=== PATIENT | male | born 1980 | race Caucasian/White ===

== ENCOUNTER 2020-10-14 17:08 | Emergency (ER) | payer OTHER, SELFPAY ==
[2020-10-14 17:27] VITALS: BP 145/91; PULSE 94; RESP 20; TEMP 36.6; O2SAT 98
--- NOTE | 2020-10-14 18:32 | PC.NURSE ---
Came to nurses desk and states he got the food down. Is able to drink and swallow not. Left without being seen.
== END 2020-10-14 18:47 | disposition left against medical advice (07) ==
LOC: ANHED 18:43
DX: T17.228A Food in pharynx causing other injury, initial encounter (principal)
CPT/HCPCS: 99199

== ENCOUNTER 2022-04-30 13:26 | Day surgery (SDC) | payer OTHER, SELFPAY ==
[2022-04-30 14:21] VITALS: BP 139/95; PULSE 87; RESP 16; TEMP 36.9; O2SAT 99
--- NOTE | 2022-04-30 14:55 | ED.GENADULT ---
HPI - General Adult General Chief complaint: Skin/Abscess/Foreign Body Stated complaint: foreign body GI Time Seen by Provider: 04/30/22 14:36 Source: patient Mode of arrival: ambulatory Limitations: no limitations History of Present Illness HPI narrative: 42-year-old with a history of hypertension here with complaints of vomiting and food stuck in the esophagus for last couple hours. Patient states that he was eating chicken and rice and he thinks it is stuck in the mid chest area he is unable to swallow or keep anything down. He states that he had similar problem several years ago. Onset (ago): hour(s) (2) Quality: aching Pain Consistency: constant Associated symptoms: denies other symptoms Related Data Home Medications Medication Instructions Recorded Confirmed lisinopril 10 mg tablet mg 04/30/22 Allergies Allergy/AdvReac Type Severity Reaction Status Date / Time No Known Allergies Allergy Verified 04/30/22 14:24 Review of Systems Review of Systems: All systems reviewed & are unremarkable except as noted in HPI and below Constitutional: Constitutional: Reports no additional constitutional complaints Eyes: Eyes: Reports no additional eye complaints ENT: Reports system reviewed and no additional complaints, except as documented Cardiovascular: Cardiovascular: Reports no additional cardiovascular complaints Respiratory: Respiratory: Reports no additional respiratory complaints Gastrointestinal: Gastrointestinal: Reports as per HPI Musculoskeletal: Musculoskeletal: Reports no additional musculoskeletal complaints Neurologic: Reports system reviewed and no additional complaints, except as documented PMF Past Medical History Medical History Hypertension TORRES (obstructive sleep apnea) Family History Family History Sibling Patient's sister is in good health Patient's brother is in good health Father Hypertension Mother Hypertension Social History Social History Smoking status: Former smoker Smoking end date: 06/03/08 Alcohol intake: current Exam Narrative: GENERAL: Well-appearing, well-nourished, and in no acute distress. HEAD: Normocephalic, atraumatic. EYES: PERRLA and EOMI.. NECK: Supple. CHEST: Clear to auscultation. No respiratory distress. HEART: Regular rate and rhythm. No murmur heard. Normal peripheral pulses. ABDOMEN: Soft, nontender, nondistended, normal active bowel sounds. EXTREMITIES: Normal range of motion. No edema. SKIN: Warm, dry, no rash. NEURO: No focal deficits. Alert and oriented x3. PSYCH: Normal mood and affect. Course Course Emergency Course: it Appears to be as a food bolus. Will consult GI for EGD. Vital Signs Vital signs: Vital Signs Temperature 36.9 C 04/30/22 14:21 Pulse Rate 87 04/30/22 14:21 Respiratory Rate 16 04/30/22 14:21 Blood Pressure 139/95 H 04/30/22 14:21 Pulse Oximetry 99 04/30/22 14:21 Oxygen Delivery Room Air 04/30/22 14:21 Temperature 36.3 C L 04/30/22 15:36 Pulse Rate 85 04/30/22 15:56 Respiratory Rate 21 H 04/30/22 15:56 Blood Pressure 124/80 04/30/22 15:56 Pulse Oximetry 95 04/30/22 15:56 Oxygen Delivery Room Air 04/30/22 15:56 Medical Decision Making MDM Narrative Medical decision making narrative: Discussed with Dr. Severino will take him for EGD Vital Signs Vital Signs: Vital Signs Temperature 36.9 C 04/30/22 14:21 Pulse Rate 87 04/30/22 14:21 Respiratory Rate 16 04/30/22 14:21 Blood Pressure 139/95 H 04/30/22 14:21 Pulse Oximetry 99 04/30/22 14:21 Oxygen Delivery Room Air 04/30/22 14:21 Temperature 36.3 C L 04/30/22 15:36 Pulse Rate 85 04/30/22 15:56 Respiratory Rate 21 H 04/30/22 15:56 Blood Pressure 124/80 04/30/22 15:56 Pulse Oximetry 95 04/30/22 15:56 Oxygen
[2022-04-30] MEDS: SODIUM CHLORIDE 0.9% IV 1,000 ML 150 ML IV CONT (15:15)
[2022-04-30] MEDS: ONDANSETRON INJ 4 MG/2 ML VIAL IV PUSH (15:15)
--- NOTE | 2022-04-30 15:20 | WPDANESEPPF ---
Anes - Initial Pre Proc Eval Procedure: Operation Date: 04/30/22 15:45 Proposed Procedures p Esophagogastroduodenoscopy EGD - Mook Severino MD Date/Time: 04/30/22 15:20 Surgeon: Mook Severino MD Pre Op Diagnosis: foreign body GI Patient Data Age: 42 Gender: M Height: 1.8 m Weight: 136 kg Last Vital Signs Temp 36.9 C 04/30/22 14:21 Pulse 87 04/30/22 14:21 Resp 16 04/30/22 14:21 BP 139/95 H 04/30/22 14:21 Pulse Ox 99 04/30/22 14:21 O2 Del Method Room Air 04/30/22 14:21 Allergies Allergy/AdvReac Type Severity Reaction Status Date / Time No Known Allergies Allergy Verified 04/30/22 14:24 Home Medications Medication Instructions Recorded Confirmed Type lisinopril 10 mg tablet mg 04/30/22 History Patient hx anesthesia problems: none Family hx anesthesia problems: none Results Review: All pre-operative results and documents have been reviewed as part of the pre-operative evaluation. [facility] Past Medical History Medical History (Updated 04/30/22 @ 15:37 by Romaine Paredes MD) Hypertension TORRES (obstructive sleep apnea) Family History Family History Sibling Patient's sister is in good health Patient's brother is in good health Father Hypertension Mother Hypertension Social History Social History Smoking status: Former smoker Smoking end date: 06/03/08 Alcohol intake: current Anes - Eval Final PreProcedure Day of Procedure 04/30/22 15:20 Patient weight: morbidly obese Heart: regular rate and rhythm Lungs: clear to auscultation Airway: Mallampati scale class III Neurological: alert and oriented Last oral intake: 4 hours ASA classification: III Emergent: yes Anesthetic plan: proceed Anesthesia type and monitoring: general GIVS and standard monitoring Results Review: All pre-operative results and documents have been reviewed as part of the pre-operative evaluation. Informed Consent: The patient's anesthetic plan and its attendant risks and benefits were discussed with the patient/family/POA. Questions were solicited and answers provided to the satisfaction of the patient/family/POA.
[2022-04-30 15:35] VITALS: BP 132/90; PULSE 88; RESP 17; TEMP 36.3; O2SAT 100
--- NOTE | 2022-04-30 15:35 | PM.HPGS ---
History of Present Illness History of Present Illness Consent: Risks, benefits, and alternatives have been discussed and questions answered. Patient agrees to proceed with procedure. Chief complaint: foreign body GI Narrative: Sahil Gutiérrez is a 42 year old male who presented to the emergency room this morning with a sensation that food was stuck in his esophagus. He had been eating chicken, With rice and broccoli He has been unable to swallow anything since this occurred, which was around 11:00 a.m. he has had issues from time to time with food get stuck but states that usually he can get them back out by vomiting. He denies chronic heartburn. Review of Systems Review of Systems: All systems reviewed & are unremarkable except as noted in HPI and below PMFSH Past Medical History Medical History (Updated 04/30/22 @ 15:37 by Romaine Paredes MD) Hypertension TORRES (obstructive sleep apnea) Family History Family History Sibling Patient's sister is in good health Patient's brother is in good health Father Hypertension Mother Hypertension Social History Social History Smoking status: Former smoker Smoking end date: 06/03/08 Alcohol intake: current Meds Home Medications and Allergies Home Medications Medication Instructions Recorded Confirmed Type lisinopril 10 mg tablet mg 04/30/22 History Allergies Allergy/AdvReac Type Severity Reaction Status Date / Time No Known Allergies Allergy Verified 04/30/22 14:24 Vital Signs Vital Signs - 24 hr 04/30/22 14:21 Temperature 36.9 C Pulse Rate 87 Respiratory Rate 16 Blood Pressure 139/95 H Pulse Oximetry 99 Oxygen Delivery Room Air Exam Const: General: alert Nutritional Appearance: obese Orientation/consciousness: patient oriented x3 Resp: Auscultation: clear to auscultation bilaterally Cardio: Rhythm: regular rhythm GI: GI Palp: Yes Soft to palpation and No Tenderness to palpation present (GI) Auscultation: normal bowel sounds Neuro: General: patient oriented x3 Assessment and Plan Assessment and plan (1) Dysphagia: Code(s): R13.10 - Dysphagia, unspecified Status: Acute Assessment and Plan: EGD with possible biopsy or dilatation or cautery.
[2022-04-30 15:36] LABS: Basophils Absolute Auto 0.1 K/mm3 (0.0-0.1); Basophils Percent Auto 0.7 % (0.2-1.2); Eosinophils Absolute Auto 0.3 K/mm3 (0-0.3); Eosinophils Percent Auto 2.2 % (0-4.4); Hematocrit 49.7 % (42.0-52.0); Hemoglobin 17.5 g/dL (14.0-18.0); Immature Granulocyte Absolute 0.07 K/mm3 (0.00-0.031); Immature Granulocyte Percent A 0.6 % (0-0.5); Lymphocytes Absolute Auto 2.07 K/mm3 (0.9-3.2); Lymphocytes Percent Auto 18.1 % (18.3-44.2); Mean Corpuscular HGB Conc 35.2 g/dl (32-36); Mean Corpuscular Hemoglobin 28.4 pg (26-34); Mean Corpuscular Volume 80.6 fl (80-100); Mean Platelet Volume 9.1 fl (7.4-10.4); Monocytes Absolute Auto 0.7 K/mm3 (0.1-0.6); Monocytes Percent Auto 5.9 % (2.6-8.5); Neutrophils Absolute Auto 8.3 K/mm3 (1.3-6.7); Neutrophils Percent Auto 72.5 % (45.5-73.1); Platelet Count Result 325 k/mm3 (150-375); Red Blood Count 6.17 M/mm3 (4.6-6.20); Red Cell Distribution Width 12.5 % (11.5-14.5); White Blood Count 11.4 K/mm3 (4.5-10.0)
[2022-04-30] MEDS: LACTATED RINGERS 1,000 ML 150 ML IV CONT (15:39)
[2022-04-30] MEDS: BENZOCAINE (*SP) 60 ML SPRAY CAN (HURRICAINE) 1 SPRAY MUCOUS MEM (15:40)
[2022-04-30 15:45] LABS: Anion Gap 11 mmol/L (8-16); Blood Urea Nitrogen 16 mg/dL (9-20); Calcium 9.5 mg/dL (8.4-10.2); Carbon Dioxide 26 mmol/L (22-30); Chloride 101 mmol/L (98-107); Estimated CRCL calculation 122 ml/min; Estimated Glomerular Filt Rate > 60; Glucose 96 mg/dL (65-110); Potassium 4.2 mmol/L (3.4-5.0); Sodium 138 mmol/L (137-145)
[2022-04-30 15:46] LABS: Prothrombin Time 12.8 Seconds (11.1-14.7)
[2022-04-30 15:56] VITALS: BP 124/80; PULSE 85; RESP 21; O2SAT 95
[2022-04-30 16:06] VITALS: BP 132/90; PULSE 90; RESP 21; O2SAT 97
[2022-04-30 16:16] VITALS: BP 144/92; PULSE 82; RESP 20; O2SAT 98
[2022-04-30 16:26] VITALS: BP 135/94; PULSE 88; RESP 18; O2SAT 98
--- NOTE | 2022-04-30 16:45 | SUR.PHASEII ---
Discharge delay due to patient awaiting ride home. Spoke with pt's keli who states she will pick him up.
== END 2022-04-30 16:52 | disposition home or self-care (01) ==
LOC: ANHED 15:14 → ANHENDO 15:15
PROVIDERS: Emergency Provider Family Medicine; Visit Provider Internal Medicine Gastroenterology
PROC: 0DJ08ZZ Inspection of Upper Intestinal Tract, Via Natural or Artificial Opening Endoscopic (ICD-10-PCS; CPT 43235; principal; 2022-04-30 15:45)
DX: T18.128A Food in esophagus causing other injury, initial encounter (principal); K21.00 Gastro-esophageal reflux disease with esophagitis, without bleeding; K22.2 Esophageal obstruction; K31.84 Gastroparesis; I10 Essential (primary) hypertension; G47.33 Obstructive sleep apnea (adult) (pediatric); Z87.891 Personal history of nicotine dependence; E66.01 Morbid (severe) obesity due to excess calories; Z68.41 Body mass index [BMI] 40.0-44.9, adult
CPT/HCPCS: 43239; 43247; 36415; 80048; 85025; 85610; 88305; 96374; 99285; J2405; J2704; J7030; J7120

== ENCOUNTER 2022-06-21 00:48 | Day surgery (SDC) | payer OTHER, SELFPAY ==
[2022-06-12 15:46] VITALS: BMI 42.4
--- NOTE | 2022-06-20 14:19 | PM.HPGS ---
History of Present Illness History of Present Illness Consent: Risks, benefits, and alternatives have been discussed and questions answered. Patient agrees to proceed with procedure. Chief complaint: eosinophilic esophagitis, esophageal stricture Narrative: Sahil Gutiérrez is a 42 year old male Who had a food impaction in April. At that time we performed emergency endoscopy to remove it, there was found to be severe esophagitis in the distal esophagus as well as a stricture. Biopsies revealed changes consistent with eosinophilic esophagitis. He has been taking pantoprazole 40 mg per day. Review of Systems Review of Systems: All systems reviewed & are unremarkable except as noted in HPI and below PMFSH Past Medical History Medical History Hypertension TORRES (obstructive sleep apnea) Family History Family History Sibling Patient's sister is in good health Patient's brother is in good health Father Hypertension Mother Hypertension Social History Social History Smoking status: Former smoker Tobacco type: e-cigarettes/vaping Smoking end date: 06/03/08 Alcohol intake: current Substance use: never Substance use type: does not use Living arrangements: with family Spiritual care concerns: No Meds Home Medications and Allergies Home Medications Medication Instructions Recorded Confirmed Type lisinopril 10 mg tablet 10 mg PO DAILY 04/30/22 06/21/22 History pantoprazole 40 mg tablet,delayed 40 mg PO QAM #30 tabs 04/30/22 06/21/22 Rx release Allergies Allergy/AdvReac Type Severity Reaction Status Date / Time No Known Allergies Allergy Verified 06/21/22 08:50 Exam Const: General: alert Orientation/consciousness: patient oriented x3 Resp: Auscultation: clear to auscultation bilaterally Cardio: Rhythm: regular rhythm GI: GI Palp: Yes Soft to palpation and No Tenderness to palpation present (GI) Neuro: General: patient oriented x3 Assessment and Plan Assessment and plan (1) Esophageal stricture: Code(s): K22.2 - Esophageal obstruction Status: Acute Assessment and Plan: EGD with possible biopsy or dilatation or cautery.
[2022-06-21 08:51] VITALS: BP 131/81; PULSE 70; RESP 18; TEMP 36.2; O2SAT 98; BMI 41.9
[2022-06-21] MEDS: LACTATED RINGERS 1,000 ML 150 ML IV CONT (08:59)
--- NOTE | 2022-06-21 09:30 | P.PNAN_ITS ---
Anes - Initial Pre Proc Eval Procedure: Operation Date: 06/21/22 10:00 Proposed Procedures p Esophagogastroduodenoscopy - Mook Severino MD Date/Time: 06/21/22 09:30 Surgeon: Mook Severino MD Pre Op Diagnosis: eosinophilic esophagitis, esophageal stricture Patient Data Age: 42 Gender: M Height: 1.8 m Weight: 136.4 kg Last Vital Signs Temp 97.2 F L 06/21/22 08:51 Pulse 70 06/21/22 08:51 Resp 18 06/21/22 08:51 BP 131/81 06/21/22 08:51 Pulse Ox 98 06/21/22 08:51 O2 Del Method Room Air 06/21/22 08:51 Allergies Allergy/AdvReac Type Severity Reaction Status Date / Time No Known Allergies Allergy Verified 06/21/22 08:50 Home Medications Medication Instructions Recorded Confirmed Type lisinopril 10 mg tablet 10 mg PO DAILY 04/30/22 06/21/22 History pantoprazole 40 mg tablet,delayed 40 mg PO QAM #30 tabs 04/30/22 06/21/22 Rx release Patient hx anesthesia problems: none Family hx anesthesia problems: none Results Review: All pre-operative results and documents have been reviewed as part of the pre- operative evaluation. [facility] Past Medical History Medical History Hypertension TORRES (obstructive sleep apnea) Family History Family History Sibling Patient's sister is in good health Patient's brother is in good health Father Hypertension Mother Hypertension Social History Social History Smoking status: Former smoker Tobacco type: e-cigarettes/vaping Smoking end date: 06/03/08 Alcohol intake: current Substance use: never Substance use type: does not use Living arrangements: with family Spiritual care concerns: No Anes - Eval Final PreProcedure Day of Procedure 06/21/22 09:30 Patient weight: morbidly obese Heart: regular rate and rhythm Lungs: clear to auscultation Airway: Mallampati scale class III Neurological: alert and oriented Last oral intake: >/= 8 hours ASA classification: III Emergent: no Anesthetic plan: proceed Anesthesia type and monitoring: general GIVS and standard monitoring Results Review: All pre-operative results and documents have been reviewed as part of the pre- operative evaluation. Informed Consent: The patient's anesthetic plan and its attendant risks and benefits were discussed with the patient/family/POA. Questions were solicited and answers provided to the satisfaction of the patient/family/POA.
[2022-06-21 10:11] VITALS: BP 121/81; PULSE 66; RESP 14; O2SAT 98
[2022-06-21 10:21] VITALS: BP 125/87; PULSE 68; RESP 16; O2SAT 100
[2022-06-21 10:31] VITALS: BP 138/94; PULSE 63; RESP 19; O2SAT 100
== END 2022-06-21 10:46 | disposition home or self-care (01) ==
PROVIDERS: Visit Provider Internal Medicine Gastroenterology
PROC: 0DJ08ZZ Inspection of Upper Intestinal Tract, Via Natural or Artificial Opening Endoscopic (ICD-10-PCS; CPT 43235; principal; 2022-06-21 10:00)
DX: K22.2 Esophageal obstruction (principal); K22.10 Ulcer of esophagus without bleeding; K44.9 Diaphragmatic hernia without obstruction or gangrene; I10 Essential (primary) hypertension; G47.33 Obstructive sleep apnea (adult) (pediatric); Z87.891 Personal history of nicotine dependence; E66.01 Morbid (severe) obesity due to excess calories; Z68.41 Body mass index [BMI] 40.0-44.9, adult
CPT/HCPCS: 43239; 88305; J2704; J7120

== ENCOUNTER 2023-05-30 13:20 | Day surgery (SDC) | payer OTHER, SELFPAY ==
[2023-05-30 13:24] VITALS: BP 164/92; PULSE 89; RESP 20; TEMP 36.1; O2SAT 98
--- NOTE | 2023-05-30 16:42 | ED.GENADULT ---
HPI - General Adult General Chief complaint: Unspecified <ABRIL Vasquez Last Filed: 05/30/23 16:52> Stated complaint: food bolus <ABRIL Vasquez Last Filed: 05/30/23 16:52> Time Seen by Provider: 05/30/23 14:17 <Breanne Smith PA-C - Last Filed: 05/30/23 16:52> Source: patient <ABRIL Vasquez Last Filed: 05/30/23 16:52> Mode of arrival: ambulatory <ABRIL Vasquez Last Filed: 05/30/23 16:52> Limitations: no limitations <ABRIL Vasquez Last Filed: 05/30/23 16:52> History of Present Illness HPI narrative: This is a 43 year old male that presents to the ER for food bolus. Reports he ate a turkey sandwich with a pretzel bun around 12:30 today. He has not been able to keep any liquids or solids down since. He is able to tolerate his secretions. Reports history of esophagitis and strictures. He has not been taking his PPI. Denies chest pain or shortness of breath. <ABRIL Vasquez Last Filed: 05/30/23 16:52> Related Data Home medications: Home Medications Medication Instructions Recorded Confirmed lisinopril 10 mg tablet 10 mg PO DAILY 04/30/22 08/21/22 <ABRIL Vasquez Last Filed: 05/30/23 16:52> Allergies/adverse reactions: Allergies Allergy/AdvReac Type Severity Reaction Status Date / Time No Known Allergies Allergy Verified 05/30/23 17:06 <ABRIL Vasquez Last Filed: 05/30/23 16:52> Review of Systems Review of Systems: CONSTITUTIONAL: Denies fever, CARDIOVASCULAR: Denies chest pain RESPIRATORY: Denies dyspnea. GASTROINTESTINAL: Reports nausea, vomiting <ABRIL Vasquez Last Filed: 05/30/23 16:52> All systems reviewed & are unremarkable except as noted in HPI and below <ABRIL Vasquez Last Filed: 05/30/23 16:52> [facility] Past Medical History Medical History: Medical History (Updated 05/30/23 @ 16:52 by Breanne Smith PA-C) Eosinophilic esophagitis Esophageal stricture Hypertension TORRES (obstructive sleep apnea) <Breanne Smith PA-C - Last Filed: 05/30/23 16:52> Family History Family History: Family History Sibling Patient's sister is in good health Patient's brother is in good health Father Hypertension Mother Hypertension <Breanne Smith PA-C - Last Filed: 05/30/23 16:52> Social History Social History: Social History Smoking status: Former smoker Tobacco type: e-cigarettes/vaping Smoking end date: 06/03/08 Alcohol intake: current Substance use: never Substance use type: does not use Living arrangements: with family Spiritual care concerns: No <Breanne Smith PA-C - Last Filed: 05/30/23 16:52> Exam Narrative: GENERAL: Well-appearing, well-nourished, and in no acute distress. HEAD: Normocephalic, atraumatic. EYES: EOMI. ENT: Nares clear, no rhinorrhea or epistaxis. Mucous membranes moist. Oropharynx without tonsillar hypertrophy exudate or other lesions. CHEST: Clear to auscultation. No respiratory distress. No wheezes rales or rhonchi HEART: Regular rate and rhythm. No murmur heard. Normal peripheral pulses. ABDOMEN: Soft, nondistended EXTREMITIES: Normal range of motion. No edema. SKIN: Warm, dry, no rash. NEURO: No focal deficits. Alert and oriented x3. PSYCH: Normal mood and affect <Breanne Smith PA-C - Last Filed: 05/30/23 16:52> Course Course Emergency Course: Patient agrees with plan of care <Breanne Smith PA-C - Last Filed: 05/30/23 16:52> SOFTWARE TOOLS ENGINEER/PA Physician Supervision For this patient encounter, I reviewed the SOFTWARE TOOLS ENGINEER or PA documentation, treatment plan, and medical decision making; and I had [id number] time with this patient. <Rashaad Capone MD - Last Filed: 05/30/23 17:17> Consultations Consultation #1: Spoke with Dr. Severino about patient and workup. Patient
[2023-05-30] MEDS: PANTOPRAZOLE SODIUM IV 40 MG VIAL IV PUSH (17:01)
[2023-05-30] MEDS: ONDANSETRON INJ 4 MG/2 ML VIAL IV PUSH (17:01)
[2023-05-30 17:05] VITALS: O2SAT 99
[2023-05-30 17:15] LABS: Basophils Absolute Auto 0.1 K/mm3 (0.0-0.1); Basophils Percent Auto 0.6 % (0.2-1.2); Eosinophils Absolute Auto 0.2 K/mm3 (0-0.3); Hematocrit 51.8 % (42.0-52.0); Hemoglobin 17.5 g/dL (14.0-18.0); Immature Granulocyte Absolute 0.04 K/mm3 (0.00-0.031); Immature Granulocyte Percent A 0.4 % (0-0.5); Lymphocytes Absolute Auto 2.16 K/mm3 (0.9-3.2); Lymphocytes Percent Auto 20.2 % (18.3-44.2); Mean Corpuscular HGB Conc 33.8 g/dl (32-36); Mean Corpuscular Hemoglobin 27.6 pg (26-34); Mean Corpuscular Volume 81.7 fl (80-100); Mean Platelet Volume 9.1 fl (7.4-10.4); Monocytes Absolute Auto 0.6 K/mm3 (0.1-0.6); Monocytes Percent Auto 5.4 % (2.6-8.5); Neutrophils Absolute Auto 7.6 K/mm3 (1.3-6.7); Neutrophils Percent Auto 71.4 % (45.5-73.1); Platelet Count Result 307 k/mm3 (150-375); Red Blood Count 6.34 M/mm3 (4.6-6.20); White Blood Count 10.7 K/mm3 (4.5-10.0)
--- NOTE | 2023-05-30 17:23 | WPDANESEPP ---
Anes - Eval Pre Procedure Procedure: Operation Date: 05/30/23 17:30 Proposed Procedures p Esophagogastroduodenoscopy - Mook Severino MD Date/Time: 05/30/23 17:23 Pre Op Diagnosis: food bolus Patient Data Age: 43 Gender: M Height: 1.8 m Weight: 135 kg Last Vital Signs Temp 36.1 C L 05/30/23 13:24 Pulse 89 05/30/23 13:24 Resp 20 05/30/23 13:24 BP 164/92 H 05/30/23 13:24 Pulse Ox 99 05/30/23 17:05 O2 Del Method Room Air 05/30/23 17:05 Allergies Allergy/AdvReac Type Severity Reaction Status Date / Time No Known Allergies Allergy Verified 05/30/23 17:06 Home Medications Medication Instructions Recorded Confirmed Type lisinopril 10 mg tablet 10 mg PO DAILY 04/30/22 08/21/22 History pantoprazole 40 mg tablet,delayed 40 mg PO BID #60 tabs 06/21/22 08/21/22 Rx release Laboratory Tests 05/30/23 16:58 WBC 10.7 H K/mm3 (4.5-10.0) RBC 6.34 H M/mm3 (4.6-6.20) Hgb 17.5 g/dL (14.0-18.0) Hct 51.8 % (42.0-52.0) MCV 81.7 fl (80-100) MCH 27.6 pg (26-34) MCHC 33.8 g/dl (32-36) RDW 13.0 % (11.5-14.5) Plt Count 307 k/mm3 (150-375) MPV 9.1 fl (7.4-10.4) Immature Gran % (Auto) 0.4 % (0-0.5) Neut % (Auto) 71.4 % (45.5-73.1) Lymph % (Auto) 20.2 % (18.3-44.2) [place] % (Auto) 5.4 % (2.6-8.5) Eos % (Auto) 2.0 % (0-4.4) Baso % (Auto) 0.6 % (0.2-1.2) Lymph # (Auto) 2.16 K/mm3 (0.9-3.2) [place] # (Auto) 0.6 K/mm3 (0.1-0.6) Eos # (Auto) 0.2 K/mm3 (0-0.3) Baso # (Auto) 0.1 K/mm3 (0.0-0.1) Abs Immat Gran (auto) 0.04 H K/mm3 (0.00-0.031) Absolute Neuts (auto) 7.6 H K/mm3 (1.3-6.7) Absolute Nucleated RBC 0.0 K/mm3 (0.0-0.012) Nucleated RBC % 0.0 % (0.0-0.2) Sodium Pending Potassium Pending Chloride Pending Carbon Dioxide Pending Anion Gap Pending BUN Pending Creatinine Pending Estim Creat Clear Calc Pending Estimated GFR Pending Glucose Pending Calcium Pending Total Bilirubin Pending AST Pending ALT Pending Alkaline Phosphatase Pending Total Protein Pending Albumin Pending Patient hx anesthesia problems: none Family hx anesthesia problems: none Results Review: All pre-operative results and documents have been reviewed as part of the pre-operative evaluation. [facility] Past Medical History Medical History (Updated 05/30/23 @ 17:23 by Mallory Mondragon CRNA) Eosinophilic esophagitis Esophageal stricture Hypertension Morbid obesity with BMI of 50.0-59.9, adult TORRES (obstructive sleep apnea) Family History Family History Sibling Patient's sister is in good health Patient's brother is in good health Father Hypertension Mother Hypertension Social History Social History Smoking status: Former smoker Tobacco type: e-cigarettes/vaping Smoking end date: 06/03/08 Alcohol intake: current Substance use: never Substance use type: does not use Living arrangements: with family Spiritual care concerns: No Exam Day of Procedure 05/30/23 17:23
[2023-05-30 17:25] LABS: Alanine Aminotransferase 53 U/L (6-50); Albumin Level 4.4 g/dL (3.5-5.1); Alkaline Phosphatase 72 U/L (38-126); Anion Gap 8 mmol/L (8-16); Aspartate Amino Transferase 42 U/L (17-59); Bilirubin,Total 1.1 mg/dL (0.2-1.3); Blood Urea Nitrogen 13 mg/dL (9-20); Calcium 9.5 mg/dL (8.4-10.2); Carbon Dioxide 28 mmol/L (22-30); Chloride 102 mmol/L (98-107); Estimated CRCL calculation 120 ml/min; Estimated Glomerular Filt Rate > 60; Glucose 90 mg/dL (65-110); Potassium 4.1 mmol/L (3.4-5.0); Sodium 138 mmol/L (137-145)
--- NOTE | 2023-05-30 17:36 | PM.HPGS ---
History of Present Illness History of Present Illness Consent: Risks, benefits, and alternatives have been discussed and questions answered. Patient agrees to proceed with procedure. Chief complaint: food bolus Narrative: Sahil Gutiérrez is a 43 year old male Presents to the emergency room this evening because of esophageal obstruction due to food that he had eaten at lunch time. He has a history of dysphagia. In fact exactly 1 year ago I had to perform emergency endoscopy to remove a food bolus. At that time was found have severe esophagitis as well as a stricture. Biopsy showed excessive numbers of eosinophils. A follow-up endoscopy 2 months later again showed an excessive number of eosinophils. We had discussed using other therapies besides PPI. He was to return to see me in January but failed to do so. Now he is here again with a food impaction. Apparently he had stopped taking his pantoprazole. Review of Systems Review of Systems: All systems reviewed & are unremarkable except as noted in HPI and below PMFSH Past Medical History Medical History Eosinophilic esophagitis Esophageal stricture Hypertension Morbid obesity with BMI of 50.0-59.9, adult TORRES (obstructive sleep apnea) Family History Family History Sibling Patient's sister is in good health Patient's brother is in good health Father Hypertension Mother Hypertension Social History Social History Smoking status: Former smoker Tobacco type: e-cigarettes/vaping Smoking end date: 06/03/08 Alcohol intake: current Substance use: never Substance use type: does not use Living arrangements: with family Spiritual care concerns: No Meds Home Medications and Allergies Home Medications Medication Instructions Recorded Confirmed Type lisinopril 10 mg tablet 10 mg PO DAILY 04/30/22 08/21/22 History pantoprazole 40 mg tablet,delayed 40 mg PO BID #60 tabs 06/21/22 08/21/22 Rx release Allergies Allergy/AdvReac Type Severity Reaction Status Date / Time No Known Allergies Allergy Verified 05/30/23 17:06 Vital Signs Vital Signs - 24 hr 05/30/23 13:24 05/30/23 17:05 Temperature 36.1 C L Pulse Rate 89 Respiratory Rate 20 Blood Pressure 164/92 H Pulse Oximetry 98 99 Oxygen Delivery Room Air Room Air Exam Const: General: alert Nutritional Appearance: obese Orientation/consciousness: patient oriented x3 Resp: Auscultation: clear to auscultation bilaterally Cardio: Rhythm: regular rhythm GI: GI Palp: Yes Soft to palpation and No Tenderness to palpation present (GI) Neuro: General: patient oriented x3 Assessment and Plan Assessment and plan (1) Food impaction of esophagus: Qualifiers: Encounter type: initial encounter Qualified Code(s): T18.128A - Food in esophagus causing other injury, initial encounter; W44.F3XA - Food entering into or through a natural orifice, initial encounter Code(s): T18.128A - Food in esophagus causing other injury, initial encounter; W44.F3XA - Food entering into or through a natural orifice, initial encounter Status: Acute Assessment and Plan: EGD with possible biopsy or dilatation or cautery, And removal of foreign body. He understands that there is a risk of perforation when we attempt to remove the foreign body and perforation risk is higher in patients with eosinophilic esophagitis which he does indeed have. (2) Morbid obesity with BMI of 50.0-59.9, adult: Code(s): E66.01 - Morbid (severe) obesity due to excess calories; Z68.43 - Body mass index [BMI] 50.0-59.9, adult Status: Acute
[2023-05-30 17:43] VITALS: BP 141/90; PULSE 65; RESP 24; TEMP 36.1; O2SAT 100
--- NOTE | 2023-05-30 17:52 | SUR.OPER ---
Patient pre oped and recovered in procedure room 1.
[2023-05-30] MEDS: LACTATED RINGERS 1,000 ML 150 ML IV CONT (17:58)
[2023-05-30 17:59] VITALS: BP 116/66; PULSE 86; RESP 19; O2SAT 95
[2023-05-30 18:09] VITALS: BP 134/86; PULSE 90; RESP 20; O2SAT 98
[2023-05-30 18:19] VITALS: BP 144/86; PULSE 77; RESP 20; O2SAT 97
== END 2023-05-30 18:36 | disposition home or self-care (01) ==
LOC: ANHED 16:52 → ANHENDO 16:55
PROVIDERS: Emergency Provider Physician Assistant; Visit Provider Internal Medicine Gastroenterology
PROC: 0DJ08ZZ Inspection of Upper Intestinal Tract, Via Natural or Artificial Opening Endoscopic (ICD-10-PCS; CPT 43235; principal; 2023-05-30 17:30)
DX: T18.128A Food in esophagus causing other injury, initial encounter (principal); W44.F3XA Food entering into or through a natural orifice, initial encounter; K22.2 Esophageal obstruction; K31.84 Gastroparesis; K21.00 Gastro-esophageal reflux disease with esophagitis, without bleeding; I10 Essential (primary) hypertension; Z87.891 Personal history of nicotine dependence; E66.01 Morbid (severe) obesity due to excess calories; Z68.41 Body mass index [BMI] 40.0-44.9, adult; G47.33 Obstructive sleep apnea (adult) (pediatric)
CPT/HCPCS: 45380; 36415; 80053; 85025; 88305; 96374; 96375; 99285; C9113; J2405; J2704; J7120